=== PATIENT | female | born 1995 ===

== ENCOUNTER 2018-12-21 18:17 | Emergency (ER) | payer BC ==
--- NOTE | 2018-12-21 18:27 | ER Report ---
History and Physical Time Seen By MD: 18:25 HPI/ROS CHIEF COMPLAINT: Abdominal pain HISTORY OF PRESENT ILLNESS: This is a 23-year-old female presents to the emergency department for abdominal pain. 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 She had a laparoscopic surgery for any major illnesses however no other abdominal surgeries. No fevers or chills. Nausea no vomiting. No chest pain or shortness of breath. Loose stool today no diarrhea. No vaginal discharge, last menstrual period was 2 weeks ago, was normal. REVIEW OF SYSTEMS: Constitutional: No fever, no chills. Eyes: No discharge. ENT: No sore throat. Cardiovascular: No chest pain, no palpitations. Respiratory: No cough, no shortness of breath. Gastrointestinal: As above. Genitourinary: No hematuria. Musculoskeletal: No back pain. Skin: No rashes. Neurological: No headache. Allergies: Coded Allergies: No Known Allergies (Verified Allergy, Unknown, 12/21/18) Home Meds Reported Medications Tramadol Hcl (TRAMADOL HCL) 50 Mg Tablet, 50-100 MG PO Q4-6H PRN for PAIN, TAB 12/21/18 Past Medical/Surgical History The patient has a past medical and surgical history of D&C, laparoscopic surgery for endometriosis. Reviewed Nurses Notes: Yes Constitutional Vital Sign - Last 24 Hours 12/21/18 12/21/18 12/21/18 12/21/18 18:29 18:30 18:32 18:37 Temp 97.8 Pulse 69 75 76 Resp 12 B/P (MAP) 127/91 (103) 127/91 Pulse Ox 96 99 96 O2 Delivery Room Air 12/21/18 12/21/18 12/21/18 12/21/18 18:42 18:47 18:52 18:57 Pulse 80 69 88 Pulse Ox 100 100 100 78 12/21/18 12/21/18 12/21/18 12/21/18 19:00 19:02 19:07 19:12 Pulse 69 63 90 B/P (MAP) 113/79 (90) Pulse Ox 99 94 97 312/21/18 12/21/18 12/21/18 19:17 19:22 19:27 19:30 Pulse 69 78 67 B/P (MAP) 115/68 (84) Pulse Ox 97 88 87 12/21/18 12/21/18 12/21/18 19:32 19:37 19:42 Pulse 78 73 72 Pulse Ox 90 93 94 Physical Exam General Appearance: The patient is alert, has no immediate need for airway protection and no signs of toxicity. Eyes: Pupils equal and round no pallor or injection. ENT, Mouth: Mucous membranes are moist. Respiratory: There are no retractions, lungs are clear to auscultation. Cardiovascular: Regular rate and rhythm, no murmurs, clicks or rubs. Gastrointestinal: Abdomen is soft and mild tenderness to the right lower quadrant, no rebound tenderness, epigastric discomfort with palpation, negative Brian sign. no masses, bowel sounds normal. Neurological: Alert and oriented 4. Moving all extremities. Following all commands. No focal neuro deficits. Skin: Warm and dry, no rashes. Musculoskeletal: Neck is supple non tender. Extremities are nontender, nonswollen and have full range of motion. DIFFERENTIAL DIAGNOSIS: After history and physical exam differential diagnosis was considered for abdominal pain in a female including but not limited to ovarian cyst, pelvic inflammatory disease, ovarian torsion, urinary tract infection, and appendicitis. Medical Decision Making Data Points Result Diagram: 12/21/18183612/21/181836 Laboratory Hematology Test 12/21/18 18:37 Red Blood Count 4.41 M/uL (4.17-5.56) Mean Corpuscular Volume 92.9 fL (80.0-96.0) Mean Corpuscular Hemoglobin 31.6 pg (26.0-33.0) Mean Corpuscular Hemoglobin Concent 34.0 g/dL (32.0-36.0) Red Cell Distribution Width 12.8 % (11.5-14.5) Mean Platelet Volume 9.0 fL (7.2-11.1) Neutrophils (%) (Auto) 51.4 % (39.4-72.5) Lymphocytes (%) (Auto) 38.3 % (17.6-49.6) Monocytes (%) (Auto) 7.4 % (4.1-12.4) Eosinophils (%) (Auto) 2.1 % (0.4-6.7) Basophils (%) (Auto) 0.8 % (0.3-1.4) Nucleated RBC Relative Count (auto) 0.0 /100WBC Neutrophils # (Auto) 5.2 K/uL (2.0-7.4) Lymphocytes # (Auto) 3.9 K/uL (1.3-3.6) Monocytes # (Auto) 0.8 K/uL (0.3-1.0) Eosinophils # (Auto) 0.2 K/uL (0.0-0.5) Basophils # (Auto) 0.1 K/uL (0.0-0.1) Nucleated RBC Absolute Count (auto) 0.00 K/uL Urine Color Yellow Urine Clarity Clear Urine pH 5.0 pH (4.8-9.5) Urine Specific [place] 1.024 Urine Protein Negative mg/dL (NEGATIVE) Urine Glucose (UA) Negative mg/dL (NEGATIVE) Urine Ketones Trace mg/dL (NEGATIVE) Urine Blood Negative (NEGATIVE) Urine Nitrite Negative (NEGATIVE) Urine Bilirubin Negative (NEGATIVE) Urine Urobilinogen Negative mg/dL (0.2-1.9) Urine Leukocyte Esterase Negative (NEGATIVE) Urine RBC <1 /HPF (0-2/HPF) Urine WBC 3 /HPF (0-5/HPF) Urine Squamous Epithelial Cells Many /LPF (</=FEW) Urine Bacteria Few /HPF (NONE-FEW) Urine Mucus Few /HPF (NONE-FEW) Urine HCG, Qualitative Negative (NEGATIVE) Sodium Level 141 mmol/L (137-145) Potassium Level 3.1 mmol/L (3.5-5.0) Chloride Level 105 mmol/L (98-107) Carbon Dioxide Level 23 mmol/L (22-31) Blood Urea Nitrogen 12 mg/dl (7-18) Creatinine 0.80 mg/dl (0.52-1.04) Glomerular Filtration Rate Calc > 60.0 Random Glucose 97 mg/dl (75-110) Calcium Level 9.1 mg/dl (8.4-10.2) Total Bilirubin 0.3 mg/dl (0.2-1.3) Aspartate Amino Transf (AST/SGOT) 23 U/L (0-35) Alanine Aminotransferase (ALT/SGPT) 22 U/L (0-56) Alkaline Phosphatase 88 U/L (0-126) Total Protein 7.9 g/dl (6.3-8.2) Albumin 4.5 g/dl (3.5-5.0) Lipase 83 U/L (23-300) Chemistry Test 12/21/18 18:37 White Blood Count 10.2 k/uL (4.5-11.0) Red Blood Count 4.41 M/uL (4.17-5.56) Hemoglobin 13.9 g/dL (12.0-16.0) Hematocrit 41.0 % (34.0-47.0) Mean Corpuscular Volume 92.9 fL (80.0-96.0) Mean Corpuscular Hemoglobin 31.6 pg (26.0-33.0) Mean Corpuscular Hemoglobin Concent 34.0 g/dL (32.0-36.0) Red Cell Distribution Width 12.8 % (11.5-14.5) Platelet Count 234 K/uL (150-450) Mean Platelet Volume 9.0 fL (7.2-11.1) Neutrophils (%) (Auto) 51.4 % (39.4-72.5) Lymphocytes (%) (Auto) 38.3 % (17.6-49.6) Monocytes (%) (Auto) 7.4 % (4.1-12.4) Eosinophils (%) (Auto) 2.1 % (0.4-6.7) Basophils (%) (Auto) 0.8 % (0.3-1.4) Nucleated RBC Relative Count (auto) 0.0 /100WBC Neutrophils # (Auto) 5.2 K/uL (2.0-7.4) Lymphocytes # (Auto) 3.9 K/uL (1.3-3.6) Monocytes # (Auto) 0.8 K/uL (0.3-1.0) Eosinophils # (Auto) 0.2 K/uL (0.0-0.5) Basophils # (Auto) 0.1 K/uL (0.0-0.1) Nucleated RBC Absolute Count (auto) 0.00 K/uL Urine Color Yellow Urine Clarity Clear Urine pH 5.0 pH (4.8-9.5) Urine Specific [place] 1.024 Urine Protein Negative mg/dL (NEGATIVE) Urine Glucose (UA) Negative mg/dL (NEGATIVE) Urine Ketones Trace mg/dL (NEGATIVE) Urine Blood Negative (NEGATIVE) Urine Nitrite Negative (NEGATIVE) Urine Bilirubin Negative (NEGATIVE) Urine Urobilinogen Negative mg/dL (0.2-1.9) Urine Leukocyte Esterase Negative (NEGATIVE) Urine RBC <1 /HPF (0-2/HPF) Urine WBC 3 /HPF (0-5/HPF) Urine Squamous Epithelial Cells Many /LPF (</=FEW) Urine Bacteria Few /HPF (NONE-FEW) Urine Mucus Few /HPF (NONE-FEW) Urine HCG, Qualitative Negative (NEGATIVE) Glomerular Filtration Rate Calc > 60.0 Calcium Level 9.1 mg/dl (8.4-10.2) Total Bilirubin 0.3 mg/dl (0.2-1.3) Aspartate Amino Transf (AST/SGOT) 23 U/L (0-35) Alanine Aminotransferase (ALT/SGPT) 22 U/L (0-56) Alkaline Phosphatase 88 U/L (0-126) Total Protein 7.9 g/dl (6.3-8.2) Albumin 4.5 g/dl (3.5-5.0) Lipase 83 U/L (23-300) Urinalysis Test 12/21/18 18:37 Urine Color Yellow Urine Clarity Clear Urine pH 5.0 pH (4.8-9.5) Urine Specific [place] 1.024 Urine Protein Negative mg/dL (NEGATIVE) Urine Glucose (UA) Negative mg/dL (NEGATIVE) Urine Ketones Trace mg/dL (NEGATIVE) Urine Blood Negative (NEGATIVE) Urine Nitrite Negative (NEGATIVE) Urine Bilirubin Negative (NEGATIVE) Urine Urobilinogen Negative mg/dL (0.2-1.9) Urine Leukocyte Esterase Negative (NEGATIVE) Urine RBC <1 /HPF (0-2/HPF) Urine WBC 3 /HPF (0-5/HPF) Urine Squamous Epithelial Cells Many /LPF (</=FEW) Urine Bacteria Few /HPF (NONE-FEW) Urine Mucus Few /HPF (NONE-FEW) Urine HCG, Qualitative Negative (NEGATIVE) EKG/Imaging Imaging Location: [facility] Patient: Mary Palacio : 1995 Visit/Account:[id number] Date of Sevice: 12/21/2018 EXAMINATION: CT abdomen and pelvis with contrast COMPARISON: None. HISTORY: Epigastric and right lower quadrant abdominal pain. PROCEDURE: Multiplanar contrast enhanced CT of the abdomen and pelvis with 75 mL intravenous Isovue 370. One of the following dose optimization techniques was utilized in the performance of this exam: Automated exposure control; adjustment of the mA and/or kV according to the patient's size; or use of an iterative reconstruction technique. Specific details can be referenced in the facility's radiology CT exam operational policy. FINDINGS: Visualized thorax: Negative. Liver: Negative. Gallbladder and biliary system: Negative Spleen: Negative. Pancreas: Negative. Adrenal glands: Negative. Kidneys and bladder: No renal mass or evidence of an obstructive uropathy. Urinary bladder is unremarkable. Vessels: Within normal limits. Bowel and mesentery: Stomach, small bowel, and appendix are within normal limits. Small amount of stool in the colon. No bowel or mesenteric inflammation. Pelvic organs: Left ovary corpus luteum compatible with a recently ruptured cyst or follicle. Lymph nodes: No adenopathy. Free air/free fluid: Small amount of simple appearing pelvic free fluid is favored to be physiologic. No pneumoperitoneum. Abdominal wall and osseous structures: Negative. IMPRESSION: 1. No findings of acute disease in the abdomen or pelvis. 2. Changes compatible with a recently ruptured left ovarian follicle or cyst. Report Dictated By: Holden Moralez MD at 12/21/2018 8:37 PM Report E-Signed By: Holden Moralez MD at 12/21/2018 8:46 PM WSN:[id number] ED Course/Re-evaluation Clinical Indication for ER IV: Hydration, IV Access ED Course The patient was admitted to a room. Attempts were obtained. Differential diagnoses were considered. An IV was started. A CBC, CMP, lipase were obtained. Lab studies unremarkable, negative UA, negative hCG, normal lipase. A CT of the abdomen and pelvis negative for any acute abnormalities, did appear to have a ruptured and resolving left ovarian cyst. Patient received 4 mg IV Zofran, 4 mg IV morphine 1, 0.5 mg IV Dilaudid. Improvement of pain. She states the pain does come and go, I did explain to her that this could be a viral illness such as a gastroenteritis that could be developing, as she did know her stools have changed consistency and are soft now and she was ill earlier in the week with a upper respiratory type infection. She was also given a GI cocktail. I did recommend following up with and establishing with a new primary care provider within the next 5-7 days for reevaluation if no improvement. She will return to the ER if she has any other concerns or worsening symptoms. She was agreeable with this plan of care and discharged home. Decision to Disposition Date: Dec 21, 2018 Decision to Disposition Time: 21:16 Depart Departure Latest Vital Signs Vital Signs Date Time Temp Pulse Resp B/P (MAP) Pulse Ox O2 Delivery O2 Flow Rate FiO2 12/21/18 19:42 72 94 12/21/18 19:30 115/68 (84) 12/21/18 18:30 97.8 12 Room Air Impression: Primary Impression: Abdominal pain Additional Impression: Ovarian cyst rupture Condition: Improved Disposition: HOME OR SELF-CARE Patient Instructions: Acute Abdominal Pain (ED), Gastroenteritis (ED), Ruptured Ovarian Cyst (ED) Additional Instructions: There were no concerning findings with the blood work, urine or CT scan of your abdomen. The CT scan however did show what appeared to be a ruptured ovarian cyst on the left side, this certainly could be tracey to some of the discomfort your having. The pain could also be a viral illness that will pass. You can take ibuprofen and/or Tylenol as needed for aches and pains. I would recommend a bland diet for the next 24 hours. Be sure to drink plenty of water. Get as much rest as possible. Follow-up with your primary care provider, or establish with a new primary care provider within the next 5-7 days for reevaluation if no improvement. Return to the emergency department for any other concerns or worsening symptoms. 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
[2018-12-21] MEDS ORDERED: TRAM-420 PO (18:33)
[2018-12-21] MEDS ORDERED: NS(*) 0.9% 1000 ML BAG 1,000 ML IV ONE (18:51)
[2018-12-21] MEDS ORDERED: MORPHINE 4 MG/ML SDV IVP ONE (18:55)
[2018-12-21] MEDS ORDERED: ONDANSETRON 4 MG/2 ML VIAL IVP ONE (18:55)
[2018-12-21 19:00] LABS: PLATELET COUNT, AUTOMATED 234 K/uL (150-450)
[2018-12-21] MEDS ORDERED: IOPAMIDOL 76% 150 ML INFUS BTL 150 ML ONE (19:12)
[2018-12-21 19:30] VITALS: BP 115/68
[2018-12-21] MEDS ORDERED: HYDROMORPHONE HCL 1 MG/ML SYRINGE IVP ONE (20:25)
--- NOTE | 2018-12-21 20:50 | RADIOLOGY IMAGING REPORT ---
FACILITY: [facility] PATIENT NAME: Mary Palacio : 1995 MR: [id number] V: [id number] EXAM DATE: ORDERING PHYSICIAN: ECHO FOOTE TECHNOLOGIST: Location: [facility] Patient: Mary Palacio : 1995 Visit/Account:[id number] Date of Sevice: 12/21/2018 EXAMINATION: CT abdomen and pelvis with contrast COMPARISON: None. HISTORY: Epigastric and right lower quadrant abdominal pain. PROCEDURE: Multiplanar contrast enhanced CT of the abdomen and pelvis with 75 mL intravenous Isovue 3 70. One of the following dose optimization techniques was utilized in the performance of this exam: A utomated exposure control; adjustment of the mA and/or kV according to the patient's size; or use of an iterative reconstruction technique. Specific details can be referenced in the facility's radiolo gy CT exam operational policy. FINDINGS: Visualized thorax: Negative. Liver: Negative. Gallbladder and biliary system: Negative Spleen: Negative. Pancreas: Negative. Adrenal glands: Negative. Kidneys and bladder: No renal mass or evidence of an obstructive uropathy. Urinary bladder is unrema rkable. Vessels: Within normal limits. Bowel and mesentery: Stomach, small bowel, and appendix are within normal limits. Small amount of sto ol in the colon. No bowel or mesenteric inflammation. Pelvic organs: Left ovary corpus luteum compatible with a recently ruptured cyst or follicle. Lymph nodes: No adenopathy. Free air/free fluid: Small amount of simple appearing pelvic free fluid is favored to be physiologic. No pneumoperitoneum. Abdominal wall and osseous structures: Negative. IMPRESSION: 1. No findings of acute disease in the abdomen or pelvis. 2. Changes compatible with a recently ruptured left ovarian follicle or cyst. Report Dictated By: Holden Moralez MD at 12/21/2018 8:37 PM Report E-Signed By: Holden Moralez MD at 12/21/2018 8:46 PM WSN:[id number]
[2018-12-21] MEDS ORDERED: LIDOCAINE 2% VISC SLN 15ML UDC PO ONE (21:15)
[2018-12-21] MEDS ORDERED: ATRO/SCOPOL/HYOSCY/PB 5 ML ELX PO ONE (21:15)
[2018-12-21] MEDS ORDERED: MAG HYD/AL HYD/SIMETH 30ML UDC PO ONE (21:15)
== END 2018-12-21 21:51 | disposition home or self-care (01) ==
LOC: ER 18:25
DX: R10.10 Upper abdominal pain, unspecified (principal); N83.202 Unspecified ovarian cyst, left side
CPT/HCPCS: 74177; 81001; 81025; 83690; 85025; 96374; 96375; 99284; J1170; J2270; J2405; J7030; Q9967; 82040; 82247; 82310; 82374; 82435; 82565; 82947; 84075; 84132; 84155; 84295; 84450; 84460; 84520